=== PATIENT | male | born 1960 | race Caucasian/White ===

== ENCOUNTER 2018-06-24 06:27 | Day surgery (SDC) | payer OTHER ==
[2018-06-24] VITALS (13 sets, daily range): BP systolic 122–136; BP diastolic 70–88; PULSE 64–92; RESP 14–41; Ht 153.7 cm; Wt 60.0 kg
[~2018-06-24] VITALS: Ht 153.7 cm; Wt 60.0 kg
[2018-06-24] MEDS ORDERED: ASPI-1044 ORAL (08:11)
[2018-06-24] MEDS ORDERED: METF-849 ORAL (08:11)
--- NOTE | 2018-06-24 08:35 | PREAC ---
Date/Time of Note Date/Time of Note DATE: 06/24/18 TIME: 08:33 Anesthesia Eval and Record Evaluation Time Pre-Procedure Interview DATE: 06/24/18 TIME: 08:33 Age 58 Sex male NPO: 8 hrs Preoperative diagnosis L inguinal hernia Planned procedure Open L inguinal hernia repair w/ mesh Past Medical History Past Medical History: Includes Endo: Diabetes Surgery & Anesthesia Issues No known issue Meds Anticoagulation: Yes (baby aspirin) Beta Kwadwo within 24 hr: No Reason Beta Kwadwo not given: Pt. not on B-Kwadwo Reported Medications Aspirin Delayed Release (Aspirin Delayed Release) 81 Mg Tablet.dr, 1 TAB ORAL DAILY 06/24/18 Metformin* (Glucophage*) 500 Mg Tab, 2 TAB ORAL BID 06/24/18 Meds reviewed: Yes Allergies Coded Allergies: Penicillins (Unverified Allergy, Severe, ITCHING, 06/24/18) Allergies Reviewed: Yes Labs/Studies Labs Reviewed: Reviewed by anesthesiologist ( 146 ) test: N/A Studies: ECG (nsr, nml), CXR (no acute disease) Pre-procedure Exam Last vitals Vital Signs Date Temp Pulse Resp B/P (MAP) Pulse Ox O2 O2 Flow FiO2 Time Delivery Rate 06/24/18 98.1 92 16 127/75 98 Room Air 06:57 (92) Airway: Adequate mouth opening, Adequate thyromental dist Mallampati: Mallampati II Teeth: Abnormal (missing molars) Lung: Normal Heart: Normal ASA Physical Status ASA physical status: 2 Emergency: None Planned Anesthetic General/MAC: ETT Pre-operative Attestations Prior to commencing anesthesia and surgery, the patient was re-evaluated, there was verification of: *The patient's identity *The results of appropriate recent lab work and preoperative vital signs *The above evaluation not changing prior to induction *Anesthetic plan, risk benefits, alternative and complications discussed with patient/family; questions answered; patient/family understands, accepts and wishes to proceed. DEEPTI CASTILLO June 24, 2018 08:35
[2018-06-24] MEDS ORDERED: GLYCOPYRROLATE 0.4 MG INJ ONE (09:30)
[2018-06-24] MEDS ORDERED: NEOSTIGMINE 3 MG/3 ML SYRINGE ONE (09:30)
[2018-06-24] MEDS ORDERED: ROCURONIUM 50 MG INJ ONE (09:30)
[2018-06-24] MEDS ORDERED: DEXAMETHASONE 4 MG/ML 5 ML INJ ONE (09:30)
[2018-06-24] MEDS ORDERED: FENTAnyl 50 MCG/ML VIAL ONE (09:30)
[2018-06-24] MEDS ORDERED: PROPOFOL 20 ML ONE (09:30)
[2018-06-24] MEDS ORDERED: ONDANSETRON 4 MG INJ ONE (09:30)
[2018-06-24] MEDS ORDERED: CEFAZOLIN 1 GM INJ ONE (09:30)
[2018-06-24] MEDS ORDERED: MIDAZOLAM 1 MG/ML 2 ML INJ ONE (09:30)
[2018-06-24] MEDS ORDERED: ROPIVACAINE 0.5 % 30 ML VIAL ONE (09:36)
--- NOTE | 2018-06-24 10:31 | PAC ---
Date/Time of Note Date/Time of Note DATE: 06/24/18 TIME: 10:31 Post-Anesthesia Notes Post-Anesthesia Note Last documented vital signs Vital Signs Date Temp Pulse Resp B/P (MAP) Pulse Ox O2 O2 Flow FiO2 Time Delivery Rate 06/24/18 98.1 92 16 127/75 98 Room Air 06:57 (92) Activity: WNL Respiratory function: WNL Cardiovascular function: WNL Mental status: Baseline Pain reasonably controlled: Yes Hydration appropriate: Yes Nausea/Vomiting absent: Yes Jefe Dawn M.D. June 24, 2018 10:31
[2018-06-24] MEDS ORDERED: MEPERIDINE 25 MG INJ ONE (10:33)
--- NOTE | 2018-06-24 10:38 | OPR ---
Date/Time of Note Date/Time of Note DATE: 06/24/18 TIME: 10:35 Operative Report Procedure Date: June 24, 2018 Preoperative Diagnosis incarcerated left inguinal hernia Postoperative Diagnosis same Operation/Procedure Performed open incarcerated left inguinal hernia repair with ultrapro plus hernia system mesh Surgeon see signature line Library Media Specialist none Anesthesia Type: general Estimated Blood Loss: 0 - 10 ml's Transfusion none Specimen none Grafts/Implants none Complications none Pt Condition Post Procedure: stable Indications This is a 58-year-old male with an incarcerated left inguinal hernia. Risks alternatives benefits and percent were discussed the patient. Patient expressed understanding consents to the operation. Procedure Description Patient is taken to the OR and prepped and draped in usual sterile fashion. Surgical time was performed. IV antibiotics given. Left inguinal oblique in cision was made with a 15 blade. Dissection with cautery skin onto the fascia. The fascia is open with a 15 blade. This incision was extended medial fairly lateral sparely with Metzenbaum scissors. Cord structures identified encircled with a Elmo drain. Incarcerated inguinal hernia was then lysed and manually reduced. The hernia sac is identified and reduced. The hernia defect is identified and bolster with the disc portion of the ultra pro hernia system mesh. The disc is secured with a running 0 Prolene from the pubic tubercle along the shelving is unlimited. Superiorly the disc secured to the internal oblique with interrupted 0 Vicryl. Onlay mesh was secured in a similar fashion with a running 0 Prolene from the pubocervical along the shelving of the inguinal ligament. Strep secretory proximally around the cord structures with interrupted 0 Prolene. Onlay mesh is secured to enter oblique with interrupted 3-0 Vicryl. Externally fascia is closed with running 3-0 Vicryl. Jessie's fascia was closed with interrupted 0 Vicryl. Skin is closed using inzorb observable skin stapler. A tap block was provided by the anesthesiologist. Dry dressings were applied. Estuardo HADLEY June 24, 2018 10:38
[2018-06-24] MEDS ORDERED: HYDROCODONE/APAP (5/325) TAB PO ONE (11:00)
[2018-06-24] MEDS ORDERED: hydrALAzine 20 MG INJ IV PRN (11:00)
[2018-06-24] MEDS ORDERED: EPHEDrine SULFATE 50 MG/5 ML SYG IV PRN (11:00)
[2018-06-24] MEDS ORDERED: IPRATROPIUM (NEB) 0.5 MG/2.5 ML AMP HHN PRN (11:00)
[2018-06-24] MEDS ORDERED: OXYCODONE/ACETAMINOPHEN (5/325) TAB PO PRN ×2 (11:00)
[2018-06-24] MEDS ORDERED: TRIMETHOBENZAMIDE 100 MG/ML VIAL IM PRN (11:00)
[2018-06-24] MEDS ORDERED: DIPHENHYDRAMINE 50 MG INJ IV PRN (11:00)
[2018-06-24] MEDS ORDERED: HYDROmorphONE 1 MG/5 ML IV SYRINGE IV PRN ×3 (11:00)
[2018-06-24] MEDS ORDERED: LABETALOL HCL 20MG INJ IV PRN (11:00)
[2018-06-24] MEDS ORDERED: ALBUTEROL 0.083% (NEB) 2.5 MG/3 ML AMP HHN PRN (11:00)
[2018-06-24] MEDS ORDERED: ONDANSETRON 4 MG INJ IV PRN (11:00)
[2018-06-24] MEDS ORDERED: MEPERIDINE 25 MG INJ IV PRN (11:00)
[2018-06-24] MEDS ORDERED: MIDAZOLAM 1 MG/ML 2 ML INJ IV PRN (11:00)
[2018-06-24] MEDS ORDERED: FENTAnyl 50 MCG/ML VIAL IV PRN ×3 (11:00)
== END 2018-06-24 12:45 | disposition home or self-care (01) ==
LOC: SDS 06:27
PROVIDERS: ATTEND Surgery
DX: K40.30 Unilateral inguinal hernia, with obstruction, without gangrene, not specified as recurrent (principal); E11.9 Type 2 diabetes mellitus without complications
CPT/HCPCS: 49507; 82962; C1781; J0690; J1100; J1170; J2175; J2250; J2405; J2795; J3010; Z7512; Z7610; J2710